=== PATIENT | male | born 1975 | race Caucasian/White ===

== ENCOUNTER 2018-09-23 11:06 | Emergency (ER) | payer OTHER ==
[~2018-09-23] VITALS: Ht 180.3 cm; Wt 75.3 kg
[2018-09-23 11:21] VITALS: Ht 180.3 cm; Wt 75.3 kg
[2018-09-23 12:48] VITALS: BP 121/57
== END 2018-09-23 12:48 | disposition home or self-care (01) ==
LOC: ED 11:06
DX: S99.822A Other specified injuries of left foot, initial encounter (principal); X58.XXXA Exposure to other specified factors, initial encounter; Y93.89 Activity, other specified; Y92.89 Other specified places as the place of occurrence of the external cause; Y99.8 Other external cause status